=== PATIENT | male | born 1965 | race Caucasian/White ===

== ENCOUNTER 2019-07-13 00:09 | Outpatient (CLI) | payer BC, SELFPAY ==
[2019-07-13 18:40] LABS: SARS-CoV-2 RNA PCR Negative
== END 2019-07-13 00:10 | disposition home or self-care (01) ==
LOC: ANHCOVIDDT 00:09
PROVIDERS: Visit Provider Internal Medicine Gastroenterology
DX: Z01.812 Encounter for preprocedural laboratory examination (principal); Z20.828 Contact with and (suspected) exposure to other viral communicable diseases
CPT/HCPCS: 87635; C9803; U0003

== ENCOUNTER 2019-07-16 01:24 | Day surgery (SDC) | payer BC, SELFPAY ==
[2019-07-13 10:09] VITALS: BMI 30.5
[2019-07-16 06:57] VITALS: BP 134/88; PULSE 55; RESP 16; TEMP 36.5; O2SAT 98
[2019-07-16] MEDS: LACTATED RINGERS 1,000 ML 150 ML IV CONT ×2 (07:12→08:33)
--- NOTE | 2019-07-16 07:14 | WPDANESEPPF ---
Anes - Initial Pre Proc Eval Procedure: Operation Date: 07/16/19 08:00 Proposed Procedures p Screening Colonoscopy - Jason Sanabria MD Date/Time: 07/16/19 07:14 Surgeon: Jason Sanabria MD Pre Op Diagnosis: NEOPLASM SCREENING FAMILY HX OF COLON CA Patient Data Age: 54 Gender: M Height: 1.85 m Weight: 105 kg Last Vital Signs Temp 36.5 C 07/16/19 06:57 Pulse 55 L 07/16/19 06:57 Resp 16 07/16/19 06:57 BP 134/88 07/16/19 06:57 Pulse Ox 98 07/16/19 06:57 Allergies Allergy/AdvReac Type Severity Reaction Status Date / Time No Known Allergies Allergy Unknown Verified 07/16/19 06:54 Home Medications Medication Instructions Recorded Confirmed Type No Home Medications 07/13/19 07/16/19 History Patient hx anesthesia problems: none Family hx anesthesia problems: none PMFSH Past Medical History Medical History (Updated 07/16/19 @ 07:15 by Davon Don MD) Obesity Anes - Eval Final PreProcedure Day of Procedure 07/16/19 07:14 Patient weight: obese Heart: regular rate and rhythm Lungs: clear to auscultation and normal air movement Airway: Mallampati scale class II Neurological: alert and oriented Last oral intake: >/= 8 hours ASA classification: II Emergent: no Anesthetic plan: proceed Anesthesia type and monitoring: general GIVS Informed Consent: The patient's anesthetic plan and its attendant risks and benefits were discussed with the patient/family/POA. Questions were solicited and answers provided to the satisfaction of the patient/family/POA.
--- NOTE | 2019-07-16 07:29 | WPDGICN ---
Assessment and Plan Assessment and plan (1) Family history of colon cancer in father: Code(s): Z80.0 - Family history of malignant neoplasm of digestive organs Status: Acute Assessment and Plan: Patient's father had colon cancer. Plan is for surveillance colonoscopy now and at 5 year intervals in the future. GI Consult Note Consult date/time: 07/16/19 07:29 HPI: Dajuan Donaldson is a 54 year old male Seen in evaluation at the request of Dr. Seymour Wilder. Patient presents for screening colonoscopy. Patient's family history is significant that his father had colon cancer. Patient's current weight appetite bowel movements are normal. He denies abdominal pain. His weight has remained stable. He has had no blood in his stools. Review of Systems Review of Systems: All systems reviewed & are unremarkable except as noted in HPI and below PMFSH Past Medical History Medical History Obesity Meds Home Medications and Allergies Home Medications Medication Instructions Recorded Confirmed Type No Home Medications 07/13/19 07/16/19 History Allergies Allergy/AdvReac Type Severity Reaction Status Date / Time No Known Allergies Allergy Unknown Verified 07/16/19 06:54 Vital Signs Vital Signs - 24 hr 07/16/19 06:57 Temperature 36.5 C Pulse Rate 55 L Respiratory Rate 16 Blood Pressure 134/88 Pulse Oximetry 98 Exam Narrative: Exam Narrative: Patient is alert. Vital signs stable. HEENT exam unremarkable. Lungs are clear to auscultation and percussion. Heart is without murmur or extra sounds. Abdominal exam bowel sounds are present soft nontender with no hepatosplenomegaly. Digital external rectal exam normal.
[2019-07-16 08:34] VITALS: BP 118/68; PULSE 65; RESP 16; O2SAT 98
[2019-07-16 08:44] VITALS: BP 114/76; PULSE 63; RESP 20; O2SAT 97
[2019-07-16 08:54] VITALS: BP 133/85; PULSE 58; RESP 18; O2SAT 99
== END 2019-07-16 09:07 | disposition home or self-care (01) ==
PROVIDERS: PCP Family Medicine; Visit Provider Internal Medicine Gastroenterology
PROC: 0DJD8ZZ Inspection of Lower Intestinal Tract, Via Natural or Artificial Opening Endoscopic (ICD-10-PCS; CPT 45378; principal; 2019-07-16 08:00)
DX: Z12.11 Encounter for screening for malignant neoplasm of colon (principal); K63.5 Polyp of colon; K64.8 Other hemorrhoids; Z80.0 Family history of malignant neoplasm of digestive organs; E66.9 Obesity, unspecified; Z68.30 Body mass index [BMI] 30.0-30.9, adult
CPT/HCPCS: 45385; 88305; J2704; J7120